=== PATIENT | female | born 1965 | race Hispanic/Latino ===

== ENCOUNTER 2017-07-16 09:00 | Outpatient (RCR) | payer OTHER | END 2017-07-18 | LOC: PT 09:00 | PROVIDERS: ATTEND Neurological Surgery | DX: M48.061 Spinal stenosis, lumbar region without neurogenic claudication (principal) ==

== ENCOUNTER 2017-07-22 09:00 | Outpatient (RCR) | payer OTHER | END 2017-08-18 | LOC: PT 09:00 | PROVIDERS: ATTEND Neurological Surgery | DX: M48.061 Spinal stenosis, lumbar region without neurogenic claudication (principal) ==

== ENCOUNTER → 2018-07-06 | Outpatient (CLI) | payer OTHER ==
--- NOTE | 2018-07-08 16:23 | Diagnostic Imaging Report ---
#[id number] - MGSCRBIL #BILATERAL DIGITAL SCREENING MAMMOGRAM WITH CAD: 07/06/2018 CLINICAL: Routine screening. Comparison is made to exams dated: 06/28/2014 mammogram, 01/24/2013 mammogram and 07/24/2015 mammogram - [facility]. Current study contains 8 films. There are scattered fibroglandular elements in both breasts. Current study was also evaluated with a Computer Aided Detection (CAD) system. There is a benign calcification in the right breast. There also are post operative findings in the left breast with a scar marker present superior to the implant. Bilateral breast implants are stable. No significant masses, calcifications, or other findings are seen in either breast. There has been no significant interval change. IMPRESSION: BENIGN There is no mammographic evidence of malignancy. A 1 year screening mammogram is recommended. The patient will be notified by letter of the results. Dean Medellin Jr., D.O. cw/:07/08/2018 10:42:16 In Store Banker: Veronica CLAY(Sandi)(M), [facility] letter sent: Compared to Prior B9 Mammogram BI-RADS: 2 Benign
== END ==
LOC: MAMMO 09:41
PROVIDERS: ATTEND Family Medicine
DX: Z12.31 Encounter for screening mammogram for malignant neoplasm of breast (principal); K52.9 Noninfective gastroenteritis and colitis, unspecified; K21.9 Gastro-esophageal reflux disease without esophagitis
CPT/HCPCS: 77067

== ENCOUNTER → 2019-07-13 | Outpatient (CLI) | payer OTHER ==
--- NOTE | 2019-07-28 10:03 | Diagnostic Imaging Report ---
#[id number] - MGSCRBIL #BILATERAL DIGITAL SCREENING MAMMOGRAM WITH CAD: 07/13/2019 CLINICAL: Routine screening. Comparison is made to exams dated: 07/06/2018 mammogram, 09/07/2016 mammogram, 07/24/2015 mammogram, 06/28/2014 mammogram and 01/24/2013 mammogram - [facility]. There are scattered fibroglandular elements in both breasts. Current study was also evaluated with a Computer Aided Detection (CAD) system. There are post operative findings in both breasts. Bilateral breast implants are stable. No significant masses, calcifications, or other findings are seen in either breast. There has been no significant interval change. IMPRESSION: NEGATIVE There is no mammographic evidence of malignancy. A 1 year screening mammogram is recommended. The patient will be notified by letter of the results. FIDENCIO wren/renetta:07/27/2019 13:02:54 Process Owner: Veronica CLAY(R)(M), [facility] letter sent: Compared to Prior B9 Mammogram BI-RADS: 1 Negative
== END ==
LOC: MAMMO 09:40
PROVIDERS: ATTEND Family Medicine
DX: Z12.31 Encounter for screening mammogram for malignant neoplasm of breast (principal)
CPT/HCPCS: 77067

== ENCOUNTER → 2019-08-22 | Outpatient (CLI) | payer BC ==
--- NOTE | 2019-08-22 16:55 | Diagnostic Imaging Report ---
EXAM: US ABDOMEN COMPLETE DATE: 08/22/2019 4:09 PM INDICATION: Abdominal pain COMPARISON: None TECHNIQUE: Transverse and longitudinal horner scale and color doppler sonographic images of the upper abdomen were obtained. FINDINGS: LIVER 14.3 cm in the right midclavicular line. Normal echogenicity of the liver with normal contour, no masses. SPLEEN 8.8 cm in maximum diameter. Normal echogenicity, no masses. GALLBLADDER Mild sludge in the gallbladder. No gallbladder wall thickening, distension, stone, or pericholecystic fluid. Negative reported sonographic Peterson's sign. The gallbladder wall measures 2mm BILE DUCTS No intra nor extra-hepatic biliary dilation. Common bile duct measures 2mm PANCREAS: Visualized portions are normal. RIGHT KIDNEY: 10.8 cm Echogenicity: Normal Collecting System: No hydronephrosis Stones: None Cyst/Mass: None LEFT KIDNEY: 10.0 cm Echogenicity: Normal Collecting System: No hydronephrosis Stones: None Cyst/Mass: None VESSELS: Aorta: Visualized portions are within normal size limits Inferior Vena Cava: Visualized portions are normal Main Portal Vein: 1.1 cm, normal size with hepatopetal flow. FREE FLUID: None IMPRESSION: Mild sludge in the gallbladder. No sonographic evidence of cholelithiasis or cholecystitis. No renal calculi or hydronephrosis. Signed by: Aren Parrish MD on 08/22/2019 4:53 PM
== END ==
LOC: US 15:59
PROVIDERS: ATTEND Family Medicine
DX: R10.9 Unspecified abdominal pain (principal)
CPT/HCPCS: 76700

== ENCOUNTER → 2021-06-24 | Outpatient (CLI) | payer BC | LOC: US 09:43 | PROVIDERS: ATTEND Family Medicine | DX: R10.11 Right upper quadrant pain (principal) | CPT/HCPCS: 76700 ==

== ENCOUNTER → 2023-01-14 | Outpatient (CLI) | payer BC | LOC: MAMMO 08:11 | PROVIDERS: ATTEND Family Medicine | DX: Z12.31 Encounter for screening mammogram for malignant neoplasm of breast (principal) | CPT/HCPCS: 77067 ==

== ENCOUNTER → 2024-02-08 | Outpatient (REF) | payer BC | LOC: MAMMO 10:21 | PROVIDERS: ATTEND Family Medicine | DX: Z12.31 Encounter for screening mammogram for malignant neoplasm of breast (principal) | CPT/HCPCS: 77067 ==

== ENCOUNTER → 2025-02-14 | Outpatient (REF) | payer BC | LOC: MAMMO 09:34 | PROVIDERS: ATTEND Family Medicine | DX: Z12.31 Encounter for screening mammogram for malignant neoplasm of breast (principal) | CPT/HCPCS: 77067 ==